=== PATIENT | female | born 1975 | race Two or more races ===

== ENCOUNTER 2023-07-29 11:00 | Emergency (ER) | payer OTHER ==
[~2023-07-29] VITALS: Ht 165.1 cm; Wt 82.6 kg
[2023-07-29] MEDS ORDERED: ATACAND4 MG PO (11:12)
[2023-07-29] MEDS ORDERED: INDAPAMIDE2.5 MG PO (11:12)
[2023-07-29] MEDS ORDERED: TENORMIN25 MG PO (11:12)
[2023-07-29 16:15] LABS: HEMATOCRIT 38.9 % (36.0-45.00); HEMOGLOBIN 13.7 g/dL (12.0-15.00); MEAN CELL VOLUME 89.8 fL (80.00-100.00); MEAN CORPUSCULAR HEMOGLOBIN 31.6 pg (27.00-32.0); MEAN CORPUSCULAR HGB CONC 35.1 g/dl (32.0-36.0); PLATELET COUNT 288 K/uL (150-450); RED BLOOD COUNT 4.33 M/uL (4.00-6.00); RED CELL DISTRIBUTION WIDTH 13.8 % (11.5-14.5)
[2023-07-29 16:34] LABS: ALBUMIN 4.1 gm/dL (3.4-5.0); BILIRUBIN TOTAL 0.53 mg/dL (0.3-1.2); CALCIUM 9.8 mg/dL (8.5-10.1); CREATININE SERUM 0.6 mg/dL (0.55-1.02); GFR 106.25; GLOBULINA 4.3 G/DL (2.4-3.5); TOTAL PROTEIN 8.4 gm/dL (6.4-8.2)
[2023-07-29 16:51] LABS: POTASSIUM 2.91 mEq/L (3.5-5.1)
[2023-07-29 19:11] LABS: URINE APPEARANCE Clear; URINE BACTERIA 427.1 uL (0.0-1933); URINE BILIRRUBIN Negative (NEGATIVE); URINE BLOOD Negative; URINE COLOR Yellow; URINE EPITHELIAL CELLS 8.1 uL (0.0-38.8); URINE GLUCOSE Negative (NEGATIVE); URINE LEUKOCYTE Trace; URINE NITRATE Negative; URINE PROTEIN Negative (NEGATIVE); URINE RBC 19.4 uL (0.0-20.8); URINE UROBILINOGEN 0.2 E.U./dl; URINE WBC 2.9 uL (0.0-23.2)
== END 2023-07-29 21:22 | disposition home or self-care (01) ==
LOC: ER 11:00
PROVIDERS: General Practice
DX: N20.0 Calculus of kidney (principal); R30.0 Dysuria; R10.9 Unspecified abdominal pain; I10 Essential (primary) hypertension

== ENCOUNTER 2024-09-16 10:13 | Emergency (ER) | payer OTHER ==
[~2024-09-16] VITALS: Ht 165.1 cm; Wt 79.4 kg
[~2024-09-16 10:13] MED LIST: ATACAND4 MG PO; INDAPAMIDE2.5 MG PO; TENORMIN25 MG PO
[2024-09-16] MEDS ORDERED: DEXAMETHASONE SODIUM PHOSPHATE 4 MG/ML VIAL IM STA (10:46)
[2024-09-16] MEDS ORDERED: SUCRALFATE 1 G TABLET PO STA (10:46)
[2024-09-16] MEDS ORDERED: ORPHENADRINE CITRATE 30 MG/ML AMPUL IM STA (10:46)
[2024-09-16] MEDS ORDERED: FAMOtidine 10 MG/ML (4ML VIAL) IV STA (10:46)
[2024-09-16] MEDS ORDERED: DICYCLOMINE HCL 20 MG TABLET PO STA (10:46)
[2024-09-16] MEDS ORDERED: ONDANSETRON HCL 2 MG/ML VIAL IV STA (10:47)
[2024-09-16] MEDS ORDERED: KETOROLAC TROMETHAMINE 15 MG VIAL IM STA (10:47)
[2024-09-16] MEDS ORDERED: ORPHENADRINE CITRATE 30 MG/ML AMPUL ONE (10:53)
[2024-09-16] MEDS ORDERED: KETOROLAC TROMETHAMINE 30 MG VIAL ONE (10:53)
[2024-09-16] MEDS ORDERED: ONDANSETRON HCL 2 MG/ML VIAL ONE (10:53)
[2024-09-16] MEDS ORDERED: FAMOTIDINE/PF 20 MG/2 ML VIAL ONE ×2 (10:54)
[2024-09-16] MEDS ORDERED: DEXAMETHASONE SODIUM PHOSPHATE 4 MG/ML VIAL ONE (10:54)
[2024-09-16] MEDS ORDERED: DICYCLOMINE HCL 10 MG CAPSULE PO ONE (11:15)
[2024-09-16 11:49] LABS: HEMATOCRIT 39.1 % (36.0-45.00); HEMOGLOBIN 13.6 g/dL (12.0-15.00); MEAN CELL VOLUME 92.7 fL (80.00-100.00); MEAN CORPUSCULAR HEMOGLOBIN 32.2 pg (27.00-32.0); MEAN CORPUSCULAR HGB CONC 34.8 g/dl (32.0-36.0); PLATELET COUNT 253 K/uL (150-450); RED BLOOD COUNT 4.22 M/uL (4.00-6.00)
[2024-09-16 12:43] LABS: CALCIUM 9.6 mg/dL (8.5-10.1); CREATININE SERUM 0.58 mg/dL (0.55-1.02); GFR 110.04; POTASSIUM 3.78 mEq/L (3.5-5.1); TSH 0.721 uIU/mL (0.358-3.74)
[2024-09-16] MEDS ORDERED: MEDROLPACK PO (13:27)
[2024-09-16] MEDS ORDERED: NORFLEX100MG PO (13:27)
[2024-09-16] MEDS ORDERED: PEPCID AC20 MG PO (13:27)
[2024-09-16] MEDS ORDERED: ACETAMINOPHEN500 M2 PO (13:27)
[2024-09-16] MEDS ORDERED: CARAFATE1 GM PO (13:27)
== END 2024-09-16 13:46 | disposition home or self-care (01) ==
LOC: ER 10:16
PROVIDERS: General Practice
DX: R07.89 Other chest pain (principal); R10.13 Epigastric pain; I10 Essential (primary) hypertension